=== PATIENT | female | born 1930 | race Caucasian/White ===

== ENCOUNTER 2016-04-17 06:01 | Emergency (ER) | payer OTHER ==
[~2016-04-17] VITALS: Ht 162.6 cm; Wt 104.3 kg
[2016-04-17 06:01] VITALS: BP 207/118; PULSE 140; RESP 32; TEMP 96.5; O2SAT 83
[~2016-04-17 06:01] MED LIST: BRIN8DRO OP; DILT60TA3 PO; GABA-531 PO; LATA2.5D6 OP; LEVO175T7 PO; RANI-281 PO; TIMO5DRO OP; WARF5TAB2 PO; coumadin; levoxyl
--- NOTE | 2016-04-17 06:01 | NUR ---
BIB [address] from [facility]. Placed in room 02. Placed on court monitor, blood pressure machine and pulse oximeter. To gown for exam. Side rails up. Breathing tx in progress by EMS. Pt sitting up, tachypneic, speaking short words, labored breathing. ER MD notified.
--- NOTE | 2016-04-17 06:08 | NUR ---
Dr. Barber at bedside for evaluation
--- NOTE | 2016-04-17 06:10 | NUR ---
PT BIB [facility] FROM [facility] C/O SHORTNESS OF BREATHE THAT STARTED 30 MINUTES PRIOR TO ER. PT IN LABORED BREATHING.
[2016-04-17] MEDS ORDERED: NITROGLYCERIN 1 INCH (GM) OINT. TD ONE (06:15)
[2016-04-17] MEDS ORDERED: methylPREDNISolone SOD SUCC/PF 62.5 MG/ML VIAL IVP ONE (06:15)
[2016-04-17] MEDS ORDERED: ALBUTEROL SULFATE 0.083% 2.5 MG/3 ML VIAL.NEB IH ONE (06:15)
[2016-04-17] MEDS ORDERED: IPRATROPIUM BROM 0.5 MG/2.5 ML VIAL.NEB (ATROVENT) IH ONE (06:15)
[2016-04-17] MEDS ORDERED: DILTIAZEM HCL 25 MG/5 ML VIAL IVP ONE (06:30)
[2016-04-17 06:34] LABS: ABG TOTAL HEMOGLOBIN 14.7 G/dL (12.0-18.0); BLOOD GAS BASE EXCESS 4.5 mmol/L (-3.0-3.0); BLOOD GAS PH 7.333 (7.350-7.450); BLOOD O2Hb% 86.8 % (94.0-97.0)
[2016-04-17 06:35] LABS: BLOOD GAS COHb% 1.2 % (0.5-1.5); BLOOD GAS HHB 11.5 % (0.0-6.0)
[2016-04-17] MEDS ORDERED: IPRATROPIUM/ALBUTEROL SULFATE 3 ML AMPUL.NEB INH ONE (06:45)
--- NOTE | 2016-04-17 06:56 | NUR ---
Recieved call from pt daughter Mary ([phone]) who has power of workers compensation attorney. Per daughter pt is in Hospice with DNR status. She is on her way here from [facility] with paperwork. , RN and pt notified.
[2016-04-17 07:18] LABS: BASOPHILS # (AUTO) 0.1 K/uL (0.0-0.2); BASOPHILS % (AUTO) 0.7 % (0.0-2.0); EOSINOPHILS % (AUTO) 0.4 % (0.0-4.0); HEMATOCRIT 43.2 % (36-48); HEMOGLOBIN 13.8 g/dL (12.0-16.0); LYMPHOCYTES # (AUTO) 1.2 K/uL (1.0-5.5); LYMPHOCYTES % (AUTO) 9.8 % (20.5-51.5); MEAN CORPUSCULAR HEMOGLOBIN 27 pg (27-31); MEAN CORPUSCULAR HGB CONC 32 % (32-36); MEAN CORPUSCULAR VOLUME 86 fL (79.0-98.0); MONOCYTES # (AUTO) 1.3 K/uL (0.0-1.0); MONOCYTES % (AUTO) 10.7 % (1.7-9.3); NEUTROPHILS # (AUTO) 9.1 K/uL (1.8-7.7); NEUTROPHILS % (AUTO) 78.4 % (40.0-70.0); PLATELET COUNT (AUTO) 258 K/uL (130-430); RED BLOOD CELL COUNT(AUTO) 5.03 MIL/uL (4.2-6.2); RED CELL DISTRIBUTION WIDTH 14.4 % (9.0-15.0); WHITE BLOOD COUNT (AUTO) 11.8 K/uL (4.8-10.8)
--- NOTE | 2016-04-17 07:26 | NUR ---
pt s/u in bed awake alert c/o SOB x " several hours" appears in mild to moderate respiratory distress able to speak in short sentences, skin w/d, denies any CP lungs with mild crackles and wheezing
[2016-04-17] MEDS ORDERED: POTA8TAB4 PO (07:28)
[2016-04-17] MEDS ORDERED: DILT60TA3 PO (07:28)
[2016-04-17] MEDS ORDERED: LORA-259 PO (07:28)
[2016-04-17] MEDS ORDERED: FURO-149 PO (07:28)
--- NOTE | 2016-04-17 07:29 | NUR ---
Medication reconciliation completed with information provided by patient. Any prior medication reconciliation on file was reviewed and corrected.
[2016-04-17 07:31] LABS: ANION GAP 4 (5-15); CALCIUM 9.4 mg/dL (8.4-11.0); CHLORIDE 101 mmol/L (98-107); CREATININE 1.24 mg/dL (0.55-1.30); GLUCOSE 184 mg/dL (70-99); POTASSIUM 3.3 mmol/L (3.5-5.1); SODIUM SERUM 138 mmol/L (136-145); UREA NITROGEN, BLOOD 31 mg/dL (8-21)
[2016-04-17 07:35] LABS: INR 1.2 (0.8-1.2); PROTHROMBIN TIME 12.6 SECS (9.5-12.5)
[2016-04-17 07:36] LABS: ALANINE AMINOTRANSFERASE 13 U/L (12-78); ALBUMIN 3.9 g/dL (3.4-4.8); ASPARTATE AMINOTRANSFERASE 19 U/L (10-37); TOTAL BILIRUBIN 0.9 mg/dL (0.0-1.0)
[2016-04-17] MEDS ORDERED: AZITHROMYCIN 250 MG in NS 250 ML IV ONE (07:45)
[2016-04-17] MEDS ORDERED: cefTRIAXone 1 GM in D5W 50 ML IV ONE (07:45)
--- NOTE | 2016-04-17 08:30 | NUR ---
FAMILY POA REFUSED MEDICATION AFTER SPEAKING W/ AND .PT'S FAMILY REASSURED TX WOULD BE APPROPRIATE HOWEVER FAMILY CONTINUED TO DECLINE.
[2016-04-17] MEDS ORDERED: AZITHROMYCIN 500 MG/VIAL (ZITHROMAX) IV ONE (08:47)
[2016-04-17] MEDS ORDERED: cefTRIAXone 1 GM VIAL ONE (08:47)
[2016-04-17 09:45] VITALS: BP 147/76; PULSE 109; RESP 20; TEMP 97.8; O2SAT 99
--- NOTE | 2016-04-17 09:45 | NUR ---
Patient given written and verbal discharge instructions and verbalizes understanding. ER MD discussed with patient the results and treatment provided. Given copies of tests performed in ER. Patient in stable condition. ID arm band removed. IV catheter removed intact and dressing applied, no active bleeding. Patient educated on pain management and to follow up with PMD. Pain Scale 0. Opportunity for questions provided and answered.
== END 2016-04-17 09:45 | disposition home or self-care (01) ==
LOC: SED 06:01
DX: I48.2 Chronic atrial fibrillation (principal); J44.1 Chronic obstructive pulmonary disease with (acute) exacerbation; E11.9 Type 2 diabetes mellitus without complications; I10 Essential (primary) hypertension
CPT/HCPCS: 36415; 36600; 71010; 80053; 82803; 83880; 84484; 85025; 85610; 87040; 93005; 94640; 96374; 96375; 99285; J0456; J0696; J2930; J3490